=== PATIENT | female | born 1970 | race African-American/Black ===

== ENCOUNTER 2020-09-20 16:19 | Emergency (ER) | payer OTHER ==
[~2020-09-20] VITALS: Ht 152.4 cm; Wt 61.2 kg
[2020-09-20] MEDS ORDERED: MORPHINE SULFATE INJ 4 MG/ML DISP.SYRIN ONE (16:36)
[2020-09-20] MEDS ORDERED: ONDANSETRON HCL/PF 4 MG/2 ML VIAL ONE (16:36)
--- NOTE | 2020-09-20 16:45 | NUR ---
Patient came in to the er c/o abd pain, dysuria for more than 3 days, 8/10 pain scale. On room air, breathing evenly and unlabored. Connected to the monitor and pulse ox. Kept comfortable, will continue to monitor accordingly.
[2020-09-20] MEDS: IV NS 0.9% 1,000 ML BAG IV ONE ×2 (16:50→19:00)
[2020-09-20] MEDS: ONDANSETRON HCL/PF 4 MG/2 ML VIAL IVP ONE (16:50)
[2020-09-20] MEDS: MORPHINE SULFATE INJ 2 MG/ML DISP.SYRIN IV ONE (16:50)
--- NOTE | 2020-09-20 16:58 | NUR ---
IV access started and blood drawned, urine collected and sent to lab.
--- NOTE | 2020-09-20 16:59 | NUR ---
technical publications writer at bedside for exam.
[2020-09-20 17:03] LABS: BASOPHILS # (AUTO) 0.2 /CMM (0.0-0.2); BASOPHILS % (AUTO) 0.9 % (0.0-2.0); HEMATOCRIT 39 % (33-45); HEMOGLOBIN 12.4 g/dL (11.5-14.8); LYMPHOCYTES # (AUTO) 0.6 /CMM (0.8-4.8); LYMPHOCYTES % (AUTO) 2.5 % (20.0-44.0); MEAN CORPUSCULAR HGB CONC 32 g/dl (31.0-36.0); MEAN CORPUSCULAR VOLUME 84 fL (82-100); MONOCYTES # (AUTO) 0.6 /CMM (0.1-1.30); MONOCYTES % (AUTO) 2.5 % (2.0-12.0); NEUTROPHILS # (AUTO) 22.7 /CMM (1.8-8.9); NEUTROPHILS % (AUTO) 94.1 % (43.0-81.0); PLATELET COUNT (AUTO) 564 /CMM (150-450); RED BLOOD CELL COUNT(AUTO) 4.61 MIL/uL (4.0-5.2); WHITE BLOOD COUNT (AUTO) 24.1 K/uL (4.3-11.0)
[2020-09-20 17:05] LABS: BILIRUBIN,URINE MODERATE (NEGATIVE); COLOR,URINE YELLOW (YELLOW); LEUKOCYTE ESTERASE ,URINE Negative (NEGATIVE); NITRITE, URINE Negative (NEGATIVE); PROTEIN,URINE >=300 mg/dl (NEGATIVE); UGLUCOSE Negative (NEGATIVE)
[2020-09-20 17:17] LABS: ALANINE AMINOTRANSFERASE 12 U/L (12-78); ALKALINE PHOSPHATASE 100 U/L (46-116); ASPARTATE AMINOTRANSFERASE 12 U/L (15-37); BILIRUBIN,DIRECT 0.2 mg/dL (0.0-0.2); BILIRUBIN,TOTAL 0.5 mg/dL (0.2-1.0); CALCIUM, SERUM 9.4 mg/dL (8.5-10.1); CARBON DIOXIDE 26 mmol/L (21-32); CHLORIDE 96 mmol/L (98-107); CREATININE 1.4 mg/dL (0.6-1.3); GLUCOSE 146 mg/dL (74-106); LIPASE 69 U/L (73-393); POTASSIUM 3.4 mmol/L (3.5-5.1); SODIUM SERUM 133 mmol/L (136-145); TOTAL PROTEIN, SERUM 8.7 g/dL (6.4-8.2); UREA NITROGEN, BLOOD 22 mg/dL (7-18)
[2020-09-20 17:33] LABS: WBC,URINE 0-2 /HPF (0-3)
[2020-09-20 17:36] LABS: BACTERIA,URINE Few /HPF (None Seen); SQUAMOUS EPITHELIAL CELL,UR 0-2 /HPF (None Seen)
[2020-09-20 17:37] LABS: FINE GRANULAR CASTS,URINE Few /LPF (None Seen)
[2020-09-20] MEDS: PIPERACILLIN /TAZOBACTAM 3.375 G in IV D5W 50 ML IV ONE (19:00)
--- NOTE | 2020-09-20 19:13 | NUR ---
called lab for covid swab
[2020-09-20] MEDS: LORAZEPAM INJ 2 MG/ML VIAL IV ONE ×2 (19:30→23:45)
[2020-09-20] MEDS ORDERED: NITROGLYCERIN 0.4 MG/TAB BOTTLE SL ONE (19:30)
--- NOTE | 2020-09-20 19:30 | NUR ---
COVID SWAB COLLECTED, CALLED LAB FOR CONSUMER MARKETING ANALYST
--- NOTE | 2020-09-20 19:34 | NUR ---
CLINICAL INFORMATION PROVIDED TO ALL ROUND LOGGER JEREMIAH. PER DIANE DANIELS CAPITATED TO [place] . WILL CALL BACK FOR MD TO
[2020-09-20] MEDS ORDERED: LORAZEPAM INJ 2 MG/ML VIAL ONE ×2 (19:36→23:40)
[2020-09-20 19:43] LABS: ALBUMIN 2.6 g/dL (3.4-5.0)
--- NOTE | 2020-09-20 19:46 | NUR ---
DR. ZHENG SPEAKING WITH SHY LOZA MD, DR. COSTELLO
--- NOTE | 2020-09-20 20:33 | NUR ---
SENT URINE TO LAB
--- NOTE | 2020-09-20 21:42 | NUR ---
PT WILL BE TRANSFERRED TO [facility] PER INSURANCE REQUEST ACCEPTING MD: DR. COSTELLO BED ASSIGNMENT: [id number] NUMBER FOR REPORT: [phone]
--- NOTE | 2020-09-20 22:05 | NUR ---
gave report to PHILLIP Rodriguez for deon
--- NOTE | 2020-09-20 22:10 | NUR ---
REC'D AUTH FROM PT'S INSURANCE TO SET UP TRANSPORTATION WITH [facility]. ETA [phone]
--- NOTE | 2020-09-20 22:44 | NUR ---
[facility] ETA [id number] (PER UNDERWEAR WELTER EMAN, AUTH #[id number])
--- NOTE | 2020-09-20 23:11 | NUR ---
spoke to maricruz lopez at [facility], pt has been moved to room 4892
[2020-09-20 23:50] VITALS: BP 132/80
--- NOTE | 2020-09-21 | NUR ---
gave report to ems
== END 2020-09-21 | disposition short-term general hospital (02) ==
LOC: ER 16:22
DX: A41.9 Sepsis, unspecified organism (principal); K52.9 Noninfective gastroenteritis and colitis, unspecified; R65.20 Severe sepsis without septic shock; R00.0 Tachycardia, unspecified; R11.10 Vomiting, unspecified; Z97.5 Presence of (intrauterine) contraceptive device; R06.02 Shortness of breath; Z20.822 Contact with and (suspected) exposure to COVID-19; F41.0 Panic disorder [episodic paroxysmal anxiety]
CPT/HCPCS: 36415; 71045; 74176; 76705; 80048; 80076; 80307; 80320; 81001; 83605 ×2; 83690; 84484; 84703; 85025; 87040 ×2; 87426; 93005; 96361; 96365; 96375; 96376; 99291; C9803; J2060 ×2; J2270; J2405; J2543; J7030; J7060; G0480